=== PATIENT | female | born 1945 | race Caucasian/White ===

== ENCOUNTER → 2025-02-27 | Outpatient (CLI) | payer MEDICARE | END | disposition home or self-care (01) | LOC: LABWHC1 09:22 | PROVIDERS: ATTEND Orthopaedic Surgery | DX: Z53.9 Procedure and treatment not carried out, unspecified reason (principal) ==

== ENCOUNTER → 2025-03-04 | Outpatient (CLI) | payer MEDICARE ==
[2025-03-04 14:56] LABS: INR 0.9 (<1.2); Partial Thromboplastin Time 22.2 sec (22.0-30.0); Prothrombin Time 10.6 sec (10.0-12.5)
[2025-03-04 21:04] LABS: ALT 23 U/L (8-44); AST 28 U/L (13-35); Albumin 4.3 g/dL (3.8-4.9); Albumin/Globulin Ratio 1.79 Ratio (1.60-3.17); Alkaline Phosphatase 52 U/L (41-126); Anion Gap 10.90 mmol/L (4.00-12.00); BUN/Creat Ratio 19.11 Ratio (12.00-20.00); Blood Urea Nitrogen 17.2 mg/dL (9.0-27.0); Calcium 9.4 mg/dL (8.7-10.3); Carbon Dioxide 24.1 mmol/L (21.6-31.8); Chloride 97 mmol/L (96-109); Globulin 2.4 g/dL (1.6-3.3); Glucose 98 mg/dL (70-110); Potassium 4.6 mmol/L (3.5-5.5); Sodium 132 mmol/L (135-145); Total Protein 6.7 g/dL (6.2-8.2)
[2025-03-04 21:14] LABS: HCT 38.2 % (37.2-46.3); HGB 12.3 g/dL (12.0-15.0); MCH 31.3 pg (27.0-32.0); MCHC 32.2 g/dL (32.0-37.0); MCV 97.2 FL (80.0-97.0); NRBC Per 100 WBC 0 X 10*3/uL (0.00-0.01); Platelet Count 255 X 10*3/uL (140-440); RBC 3.93 X 10*6/uL (4.10-5.20); RDW 12.8 % (11.5-14.5); WBC 9.52 X 10*3/uL (4.50-10.00)
== END | disposition home or self-care (01) ==
LOC: LABPAT 13:28
PROVIDERS: ATTEND Orthopaedic Surgery
DX: Z01.818 Encounter for other preprocedural examination (principal); Z22.322 Carrier or suspected carrier of Methicillin resistant Staphylococcus aureus; M16.12 Unilateral primary osteoarthritis, left hip; E11.9 Type 2 diabetes mellitus without complications
CPT/HCPCS: 80053; 83036; 85027; 85610; 85730; 86850; 86900; 86901; 87070; 93005

== ENCOUNTER 2025-03-13 11:45 | Inpatient (IN) | payer MEDICARE ==
[2025-03-07 13:02] VITALS: BMI 25.2
[~2025-03-13 11:45] MED LIST: HYDROmorphone 0.5 MG/0.5 ML SYRINGE IVP PRN; ONDANSETRON 4 MG/2 ML VIAL IVP PRN; TRANEXAMIC 1,000 MG/100ML-NACL 1,000 MG in SALINE 1 100ML.BAG IV PRN; TRANEXAMIC 1,000 MG/100ML-NACL 1,000 MG in SALINE 1 100ML.BAG IVPB PRN
[2025-03-13] MEDS: IV FLUID CONTINUATION 1,000 ML IV ONE (13:50)
[2025-03-13] MEDS: KETOROLAC 15 MG/ML 1 ML VIAL IVP PRN (13:54)
[2025-03-13] MEDS: DEXAMETHASONE SOD PHOSPHATE 10 MG/ML 1 ML VIAL IV PRN (13:55)
[2025-03-13] MEDS: ONDANSETRON 4 MG/2 ML VIAL IVP ONE (13:56)
[2025-03-13] MEDS: FAMOTIDINE 20 MG/2 ML VIAL IVP PRN (13:56)
[2025-03-13] MEDS: ACETAMINOPHEN TAB 500 MG TAB PO PRN (13:57)
[2025-03-13] MEDS: DOCUSATE 100 MG CAP PO PRN (13:57)
[2025-03-13] MEDS: oxyCODONE ER 10 MG TAB.ER.12H PO PRN (13:57)
[2025-03-13] MEDS: LACTATED RINGERS 1,000 ML IV SCH (13:58)
[2025-03-13] MEDS: MIDAZOLAM 2 MG/2 ML VIAL IVP ONE (14:13)
[2025-03-13] MEDS ORDERED: PHENYLEPHRINE 10 MG/ML VIAL ONE (14:55)
[2025-03-13] MEDS ORDERED: GLYCOPYRROLATE 0.2 MG/ML 2 ML VIAL ONE (14:55)
[2025-03-13] MEDS ORDERED: NEOSTIGMINE 1 MG/ML 10 ML VIAL ONE (14:55)
[2025-03-13] MEDS ORDERED: SUCCINYLCHOLINE CHLORIDE 200 MG/10 ML VIAL IV ONE (14:55)
[2025-03-13] MEDS ORDERED: ePHEDrine 50 MG/ML 1 ML VIAL ONE (14:55)
[2025-03-13] MEDS ORDERED: PROPOFOL 10 MG/ML 20 ML VIAL IV ONE (14:55)
[2025-03-13] MEDS ORDERED: ROPIVACAINE 5 MG/ML 30 ML VIAL ONE (14:55)
[2025-03-13] MEDS ORDERED: ROCURONIUM 10 MG/ML (5 ML VIAL) IV ONE (14:55)
[2025-03-13] MEDS ORDERED: fentaNYL (PF) 50 MCG/ML 2 ML AMP ONE (14:55)
[2025-03-13] MEDS ORDERED: LIDOCAINE 1% INJ 10MG/ML (20 ML MDV) ONE (14:55)
[2025-03-13] MEDS ORDERED: SODIUM CHLORIDE 0.9% (PF) 10 ML VIAL ONE (14:55)
[2025-03-13] MEDS ORDERED: TRANEXAMIC 1,000 MG/100ML-NACL PREMIX BAG ONE (14:55)
--- NOTE | 2025-03-13 14:55 | P.ANPRN ---
Procedure Note - Anesthesia - Nerve Block Performed Left Kalin Single Time Out Performed: Yes Date of Procedure: 03/13/25 Procedure Start Time: 14:13 Location of Patient: PreOp Indication: Acute Post-Operative Pain, Requested by Surgeon Specifically requested for management of pain by DrJoe: Florentino Jean-Baptiste Sedation Type: Sedate with meaningful contact maintained Preparation: Sterile Prep Position: Supine Needle Gauge: 20 Ultrasound used to visualize needle placement: Yes Ultrasound used to observe medication spread: Yes Injectate: 0.5% Ropivacaine (see comment for volume) (30 CC PLUS dECADRON 4 MG) Blood Aspirated: No Pain Paresthesia on Injection Noted: No Resistance on Injection: Normal Image Stored and Saved: Yes Events: Uneventful and Well Tolerated
[2025-03-13] MEDS: ROPIVACAINE/EPI/CLONIDINE/KET 50 ML SYRINGE MISCELLANE PRN (15:43)
--- NOTE | 2025-03-13 17:02 | FL ---
EXAMINATION TYPE: FL guidance operating room, XR femur LT DATE OF EXAM: 03/13/2025 4:58 PM COMPARISON: Pre Operative Images if available both CT/MRI or plain film CLINICAL INDICATION: Female, 79 years old with history of LT Hip-Ant; TECHNIQUE: FL guidance operating room, XR femur LT, multiple fluoroscopic images provided for procedu re. DAP: 1.799 mGym2 Gycm2 uGym2 cGycm2 or equivalent. FINDINGS: Fluoroscopic images during internal fixation/arthroplasty demonstrate hardware in appropriate positio n. Hardware appears intact. No immediate complication identified. IMPRESSION: 1. No evidence for intraoperative complication. 2. Please see the operative/procedural note for further details. [facility], , 03/13/2025 5:00 PM
[2025-03-13] MEDS ORDERED: ONDANSETRON 4 MG/2 ML VIAL IVP PRN (17:23)
[2025-03-13] MEDS ORDERED: HYDROmorphone 0.5 MG/0.5 ML SYRINGE IVP PRN ×2 (17:23)
[2025-03-13] MEDS ORDERED: diazePAM 5 MG TAB PO PRN (17:23)
[2025-03-13] MEDS ORDERED: NALOXONE 0.4 MG/ML 1 ML VIAL IV PRN (17:23)
[2025-03-13] MEDS ORDERED: MAGNESIUM HYDROXIDE 2,400 MG/30 ML CUP PO PRN (17:23)
--- NOTE | 2025-03-13 17:23 | P.OP ---
Date of Procedure: 03/13/25 Preoperative Diagnosis: 1. 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 Left total hip replacement Postoperative Diagnosis: Same Procedure(s) Performed: Open reduction and internal fixation left femoral shaft fracture Anesthesia: HIEN, regional Surgeon: Florentino Jean-Baptiste Mathematician Research #1: Mo Lorenzo Estimated Blood Loss (ml): 200 IV fluids (ml): 800 Pathology: none sent Condition: stable Disposition: PACU Indications for Procedure: The patient is a very pleasant 79-year-old female who presented to my office 2 months ago with intractable left thigh pain. The patient had had a prior left total hip replacement and had done well with no pain until this past August when she developed atraumatic and progressively worsening left thigh pain. She was initially worked up by her primary care physician and referred to my office. In my office she was found to have an atypical fracture distal to a cementless stem that appeared well-fixed. She had both plain films and an x-ray. She was sent for inflammatory labs to rule out infection and a triple phase bone scan. She return to my office to discuss results of workup. Her bone scan only showed signal at the site of the stress fracture and there was no signal around the femoral stem. The patient also gave a history of being started on a bisphosphonate over 5 years ago without coming off for a holiday free from her bisphosphonate. I had a long discussion with the patient and her on both the underlying cause of her femoral stress fracture and the treatment. We discussed the possibility of the stem being loose resulting in the fracture. Given the fact that the patient had no pain prior to August and has done very well with normal inflammatory markers and bone scan I think it is unlikely the femoral stem is loose. I also found a case report in [facility] (Periprosthetic Fracture of the Femur After Long-Term Bisphosphonate Use: A case report by SHAILESH Allison and Miller Pedraza MD) which had almost identical appearance to Mrs. Elizabeth's clinical course and x-ray. Given all of this I think it is unlikely the femoral stem is loose and the fracture is most likely due to stress fracture from chronic bisphosphonate use. We decided not to expose the hip joint since it had previously been doing well to avoid introducing instability or infection. We also discussed the small possibility that the stem is in fact loose. We all agreed to perform open reduction internal fixation rather than observation to prophylactically stabilize the fracture and prevent displacement. We had a long discussion on the potential risks and complications of surgery at length including but certainly not limited to risks from anesthesia, superficial or deep infection, delayed wound healing, nonunion, malunion, periprosthetic fracture, implant failure, continued or worsened thigh pain from loose femoral stem, periprosthetic joint infection, DVT, PE, other medical complications and possibly loss of life or limb. The patient and her understand that while these are the most common complications other less common complications are possible. Operative Findings: There was an obvious diaphyseal fracture along the lateral and anterior cortex. Description of Procedure: The patient was identified in preoperative holding and the correct left leg was marked with my initials. I reviewed the consent form with the patient and her . All of their questions were answered. The patient was then brought back to the operating room by anesthesia. She was positioned on the OR table where a general anesthetic and preoperative antibiotics were given. A bone foam bump was placed under the left buttock internally rotating the leg and a ramp wa s placed onto the leg to facilitate imaging. The contralateral leg was secured to the OR table with foam and tape. Nonsterile drapes were applied. A presurgical scrub was performed with a chlorhexidine scrub brush. The left leg was then prepped and draped in the standard sterile fashion. Prior to starting surgery a timeout was performed identifying the correct patient, operative extremity, and procedure. I began by making a longitudinal incision to the lateral femur starting at the knee and extending proximally. The distal half of the prior surgical scar from hip replacement was utilized. Skin incision was made with a scalpel and dissection was carried down carefully through the subcutaneous tissue with electrocautery. The IT band was identified and incised longitudinally in line with the skin incision. I then elevated the vastus lateralis off of the lateral intermuscular septum down to the lateral shaft of the femur using bipolar electrocautery sealant to control any perforating vessels. The femur was fully exposed. On inspection of the lateral femur after using fluoroscopy to determine the level of the stress fracture the stress fracture was readily identified. There was beaking of the lateral femur and a fracture involving the lateral and anterior cortex. I gently used a curette and osteotome to feather the fracture ends to stimulate healing. Biologic was also placed in the fracture site. There did not appear to be any sign of thickening of the cortex proximally suggestive of loose stem. After the fracture site was thoroughly debrided and Biologics were added a precontoured femoral locking plate was placed against the lateral of the cortex and its size assessed with fluoroscopy. Once the appropriate length plate was chosen fluoroscopy was used to center the plate on a lateral view and positioned in the proximal distal position on the AP view. It was held with K wires. I then placed 2 nonlocking screws distal to the fracture nicely bringing the plate down to bone. 3 locking screws were placed distally. Attention was then turned proximally. I was unable to navigate screws around the well-fixed stem so 3 cables were placed proximal to the fracture around the stem. Final fluoroscopic images were taken. The wound was thoroughly irrigated and closed in layers. Prior to closing the incision local anesthetic was infiltrated in the muscle and deep subcu. A sterile dressing was applied over the closed incision. The drapes were then taken down. A cotton web roll and Omar wrap were applied over the leg. The patient was then transferred from the OR table to a relizabeth and brought to recovery having tolerated the procedure well. Mo Lorenzo PA-C was required as a skilled assistant to the vice president due to the complexity of surgery for patient positioning, draping, retraction, placement of hardware, closure of wound, and application of dressing. Plan: The patient can toe-touch weight-bear on her left lower extremity. 2 doses of postoperative antibiotics. DVT prophylaxis with aspirin 81 mg twice daily. Internal medicine for perioperative medical management. The patient will also need imaging of the contralateral femur and bone health workup.
[2025-03-13] MEDS: LACTATED RINGERS 1,000 ML IV ONE (19:37)
[2025-03-13] MEDS: DEXAMETHASONE SOD PHOSPHATE 4 MG/ML 1 ML VIAL IV ONE (20:48)
[2025-03-13] MEDS ORDERED: ACETAMINOPHEN PO PRN (21:27)
[2025-03-13] MEDS ORDERED: ASPIRIN PO PRN (21:27)
[2025-03-13] MEDS ORDERED: CAFFEINE PO PRN (21:27)
[2025-03-13] MEDS: MAGNESIUM OXIDE 400 MG TAB PO SCH (21:47)
[2025-03-13] MEDS: LEVOTHYROXINE 75 MCG TAB PO SCH (21:47)
[2025-03-13] MEDS: SENNOSIDES-DOCUSATE SODIUM 1 EACH TAB PO SCH (21:47)
[2025-03-13] MEDS: ASPIRIN 81 MG PO SCH (21:47)
[2025-03-13] MEDS: HYDROcodone/APAP 5-325MG 1 EACH TAB PO PRN (21:47)
[2025-03-13] MEDS: LIPASE 20,000/PROTEASE 63,000/AMYLASE 84,000 PO SCH (21:52)
[2025-03-14] MEDS: SODIUM CHLORIDE 0.9% 1,000 ML IV SCH (00:26)
[2025-03-14] MEDS: diazePAM 5 MG TAB PO PRN (03:09)
[2025-03-14] MEDS: PANTOPRAZOLE 40 MG TABLET PO SCH (06:42)
[2025-03-14 08:09] LABS: Basophils # (A) 0.05 X 10*3/uL (0.00-0.10); Basophils % (A) 0.3 %; Eosinophils # (A) 0 X 10*3/uL (0.04-0.35); Eosinophils % (A) 0 %; HCT 32.6 % (37.2-46.3); HGB 10.5 g/dL (12.0-15.0); Immature Grans, Automated 0.90 %; Lymphocytes # (A) 0.58 X 10*3/uL (0.90-5.00); Lymphocytes % (A) 3.8 %; MCH 31.2 pg (27.0-32.0); MCHC 32.2 g/dL (32.0-37.0); MCV 96.7 FL (80.0-97.0); Monocytes # (A) 0.77 X 10*3/uL (0.20-1.00); Monocytes % (A) 5.0 %; NRBC Per 100 WBC 0 X 10*3/uL (0.00-0.01); Neutrophils # (A) 13.73 X 10*3/uL (1.80-7.70); Neutrophils % (A) 90.0 %; Platelet Count 235 X 10*3/uL (140-440); RBC 3.37 X 10*6/uL (4.10-5.20); RDW 12.6 % (11.5-14.5); WBC 15.27 X 10*3/uL (4.50-10.00)
--- NOTE | 2025-03-14 08:13 | P.PN ---
Subjective Progress Note Date: 03/14/25 No acute events overnight per patient. Patient is doing well this morning. The pain in their hip is mild. They have walked to the bathroom with a walker and assistance. They deny chest pain or shortness of breath. Objective - Vital Signs Vital signs: Vital Signs Temp 97.4 F L 03/14/25 00:33 Pulse 73 03/14/25 00:33 Resp 17 03/14/25 00:33 BP 128/72 03/14/25 00:33 Pulse Ox 94 L 03/14/25 00:33 FiO2 Intake & Output 03/13/25 03/14/25 03/14/25 18:59 06:59 18:59 Intake Total 750 600 Output Total 300 700 Balance 450 -100 Weight 57.8 kg 57.8 kg Intake: IV 750 600 Output: Urine 700 Straight 700 Estimated Blood Loss 300 Other: # Voids 1 - Exam Patient was examined at bedside. Patient is resting comfortably in bed. No apparent distress. They are awake, alert and able to answer questions. Inspection: There is an Omar wrap over the left thigh , left in place. There is mild swelling in the operative thigh. Palpation: The operative calf is soft to compression. No calf tenderness. Neurovascular: Operative femoral nerve function is intact. The patient is able to actively plantarflex and dorsiflex their operative ankle and toes. Operative extremity sensation is intact to light touch throughout. Their operative foot appears well perfused, palpable dorsalis pedis pulse, and capillary refill under 2 seconds. 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 Use assistance and use a walker to ambulate. Leave surgical dressing in place and Omar wrap until 03/15/2025. Physical therapy for gait training and mobilization. Will order right femur x-rays. Aspirin 81 mg twice daily for DVT prophylaxis. Omeprazole, that home, omeprazole for GI prophylaxis. We appreciate internal medicine for perioperative medical management. Disposition: Will work with physical therapy. Pending.
[2025-03-14 08:54] VITALS: RESP 18
[2025-03-14] MEDS: MELOXICAM 7.5 MG TAB PO SCH (09:17)
[2025-03-14] MEDS: LORATADINE 10 MG TAB PO SCH (09:19)
[2025-03-14] MEDS: PROPRANOLOL 40 MG TAB PO SCH (09:20)
[2025-03-14] MEDS: SERTRALINE 50 MG TAB PO SCH (09:21)
[2025-03-14] MEDS: FAMOTIDINE 20 MG TAB PO SCH (09:24)
[2025-03-14] MEDS: CYANOCOBALAMIN 500 MCG TAB PO SCH (09:24)
[2025-03-14] MEDS: HYDROmorphone 0.5 MG/0.5 ML SYRINGE IVP PRN (09:26)
[2025-03-14] MEDS: MULTIVITAMINS, THERA 1 EACH TAB PO SCH (12:22)
--- NOTE | 2025-03-14 12:34 | XR ---
EXAMINATION TYPE: XR femur RT DATE OF EXAM: 03/14/2025 12:10 PM COMPARISON: None CLINICAL INDICATION: Female, 79 years old with history of rule out atypical bisphosphonate stress fra cture; PHH, pain TECHNIQUE: XR femur RT examined in Frontal and lateral projections. FINDINGS: Degeneration changes of the knee with joint space narrowing osteophyte formation. Bilateral prior injury to the medial collateral ligament suggestive of calcification. Total right hip arthropl asty with hardware intact. IMPRESSION: 1. No evidence for stress fracture. 2. Right total hip arthroplasty with hardware intact. 3. 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 [facility], , 03/14/2025 12:31 PM
[2025-03-15 01:55] VITALS: TEMP 98.4
[2025-03-15] MEDS: HYDROcodone/APAP 10-325MG 1 EACH TAB PO PRN (06:55)
[2025-03-15 08:11] VITALS: BP 120/67; PULSE 83
--- NOTE | 2025-03-15 12:01 | P.DS ---
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 On 03/13/2025 the patient presented to the [facility] pre-op department for scheduled Open reduction and internal fixation left femoral shaft fracture with Dr. Jean-Baptiste. The patient tolerated the procedure well. The patient was transferred to the orthopedic floor. The patient had no acute events over night. The patient's pain has been well-controlled with oral [place] 10. Patient was examined at bedside. Patient is resting comfortably in bed. No apparent distress. They are awake, alert and able to answer questions. Inspection: The surgical dressing is intact, there is no drainage or strikethrough. The skin surrounding the dressing is free of erythema. There is mild swelling in the operative thigh. Palpation: The operative calf is soft to compression. No calf tenderness. Neurovascular: Operative femoral nerve function is intact. The patient is able to actively plantarflex and dorsiflex their operative ankle and toes. Operative extremity sensation is intact to light touch throughout Their operative foot appears well perfused, palpable dorsalis pedis pulse, and capillary refill under 2 seconds. Patient worked with physical therapy and it was determined they could discharge home. Patient would like to discharge home with . Plan to discharge home today if cleared by internal medicine. Plan follow up in two weeks in our office. Please see med rec for a list of accurate medications. 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 Left total hip replacement Left hip pain Plan - Discharge Summary Discharge Rx Participant: Yes New Discharge Prescriptions: New HYDROcodone/APAP 10-325MG [[place] 10] 1 each PO Q6H PRN #20 tab PRN Reason: Pain No Action Multivitamins, Thera [Multivitamin (formulary)] 1 tab PO QAM Sertraline [Zoloft] 50 mg PO QAM Omeprazole 20 mg PO QAM Lipase/Protease/Amylase [Ana Cameron 36,000 Unit Capsule] 1 cap PO TID-W/MEALS Cyanocobalamin (Vitamin B-12) [Vitamin B-12] 1,000 mcg PO QAM Citracal (Unknown Dose) 1 tab PO QAM Celecoxib 200 mg PO QAM [id number] [phone] [Excedrin] 1 each PO BID-W/MEALS PRN PRN Reason: Headache Propranolol HCl 80 mg PO QAM Magnesium 250 mg PO HS Levothyroxine Sodium 75 mcg PO HS Cetirizine HCl 10 mg PO QAM Discharge Medication List [id number]-[id number] [phone] [Excedrin] 1 each PO BID-W/MEALS PRN 03/07/25 [History] Celecoxib 200 mg PO QAM 03/07/25 [History] Cetirizine HCl 10 mg PO QAM 03/07/25 [History] Citracal (Unknown Dose) 1 tab PO QAM 03/07/25 [History] Cyanocobalamin (Vitamin B-12) [Vitamin B-12] 1,000 mcg PO QAM 03/07/25 [History] Levothyroxine Sodium 75 mcg PO HS 03/07/25 [History] Lipase/Protease/Amylase [Ana Cameron 36,000 Unit Capsule] 1 cap PO TID-W/MEALS 03/07/25 [History] Magnesium 250 mg PO HS 03/07/25 [History] Multivitamins, Thera [Multivitamin (formulary)] 1 tab PO QAM 03/07/25 [History] Omeprazole 20 mg PO QAM 03/07/25 [History] Propranolol HCl 80 mg PO QAM 03/07/25 [History] Sertraline [Zoloft] 50 mg PO QAM 03/07/25 [History] HYDROcodone/APAP 10-325MG [[place] 10] 1 each PO Q6H PRN #20 tab 03/15/25 [Rx] Follow up Appointment(s)/Referral(s): [facility] [[facility]] - 1-2 Days ([facility] will call you to schedule your in home nursing and physical therapy visits. ) Florentino Jean-Baptiste MD [Medical Doctor] - 2 Weeks Activity/Diet/Wound Care/Special Instructions: 1. The patient can toe-touch weight-bear on her left lower extremity. Use a walker or other assistive device to ambulate. 2. Leave surgical dressing in place. If your dressing becomes saturated with blood, there is drainage, or the dressing becomes loose please contact the office. It is okay to shower with your surgical dressing, but do not submerge in water (no hot tubs, bath's, swimming etc.) 3. Anticoagulation: Aspirin 81mg BID. 4. Pain: [place] 10/325 1 q6h PRN. While taking norco take a stool softener (Ex: Senokot) and drink lots of water. 5. GI Prophylaxis: Resume home Omeprazole 20 mg QD. 6. Keep all follow-up appointments as scheduled. You will usually be seen in 1-2 weeks following surgery. 7. Please contact the office with any questions or concerns [phone] Discharge Disposition: HOME WITH HOME HEALTH SERVICES
== END 2025-03-15 13:34 | disposition home health service (06) | DRG 482 ==
LOC: 2ORMAIN 12:43 → 4SSUR 18:26
PROVIDERS: ADMIT Orthopaedic Surgery; ATTEND Orthopaedic Surgery
PROC: 0QS904Z Reposition Left Femoral Shaft with Internal Fixation Device, Open Approach (ICD-10-PCS; principal; 2025-03-13 15:40)
DX: M84.352A Stress fracture, left femur, initial encounter for fracture (principal); E03.9 Hypothyroidism, unspecified; E78.5 Hyperlipidemia, unspecified; T45.8X5A Adverse effect of other primarily systemic and hematological agents, initial encounter; Z79.83 Long term (current) use of bisphosphonates; Z96.642 Presence of left artificial hip joint; K21.9 Gastro-esophageal reflux disease without esophagitis; Z79.899 Other long term (current) drug therapy; Z85.42 Personal history of malignant neoplasm of other parts of uterus
CPT/HCPCS: 64473; 85025